=== PATIENT | female | born 1945 | race Caucasian/White ===

== ENCOUNTER → 2016-12-30 | Outpatient (CLI) | payer BC ==
--- NOTE | 2017-01-06 18:44 | PCVCIMAG ---
APPROVED REPORT Study performed: 12/30/2016 12:08:13 EXAM: Comprehensive 2D, Doppler, and color-flow Echocardiogram Patient Location: Echo lab Status: routine Indications Abnormal ECG Dyspnea Fatigue 2D Dimensions IVSd: 8.66 (7-11mm)LVOT Diam: 18.05 (18-24mm) LVDd: 49.78 mm PWd: 9.08 (7-11mm)Ascending Ao: 37.28 (22-36mm) LVDs: 37.39 (25-40mm) Left Atrium: 32.66 (27-40mm) Aortic Root: 25.12 mm LV Single Plane 4CH: 56.47 % LV Single Plane 2CH: 37.59 %Padilla's LVEF: 47.03 % Volumes Left Atrial Volume (Systole) Single Plane 4CH: 33.16 mLSingle Plane 2CH: 17.63 mL LA ESV Index: 13.00 mL/m2 Aortic Valve AoV Peak Trae.: 1.15 m/s AO Peak Gr.: 5.25 mmHgLVOT Max P.73 mmHg LVOT Max V: 0.83 m/s KASHMIR Vmax: 1.84 cm2 AI Vmax: 3.38 m/s AI [place]: 1.20 m/s2 AI PHT: 814.42 ms Mitral Valve E/A Ratio: 0.7 MV Decel. Time: 174.90 ms MV E Max Trea.: 0.39 m/s MV A Trae.: 0.58 m/s IVRT: 134.95 ms TDI E/Lateral E': 6.50E/Medial E': 6.50 Medial E' Trae.: 0.06 m/s Lateral E' Trae.: 0.06 m/s Pulmonary Valve PV Peak Trae.: 0.93 m/sPV Peak Gr.: 3.46 mmHg Pulmonary Vein P Vein S: 0.57 m/sP Vein A: 0.35 m/s P Vein D: 0.42 m/sP Vein A Dur.: 72.7 msec P Vein S/D Ratio: 1.36 Tricuspid Valve TR Peak Trae.: 1.74 m/s TR Peak Gr.: 12.13 mmHg TV Vmax: 0.40 m/sPA Pressure: 19.00 mmHg Left Ventricle The left ventricle is normal size. There is normal LV segmental wall motion. There is normal left ventricular wall thickness. Left ventricular systolic function is normal. The left ventricular ejection fraction is within the normal range. LVEF is 55-60%. Grade I - abnormal relaxation pattern. Right Ventricle The right ventricle is normal size. The right ventricular systolic function is normal. Atria The left atrium size is normal. The right atrium size is normal. Aortic Valve Aortic valve is trileaflet. Aortic valve leaflets are mildly sclerotic but open well. Trace to mild aortic regurgitation. There is no aortic valvular stenosis. Mitral Valve The mitral valve is normal in structure. There is no mitral valve regurgitation noted. No evidence of mitral valve stenosis. Tricuspid Valve The tricuspid valve is normal in structure. Trace tricuspid regurgitation with a PA pressure of 19mmHg. Pulmonic Valve The pulmonary valve is normal in structure. There is no pulmonic valvular regurgitation. Great Vessels The aortic root is normal in size. The ascending aorta is normal in size. IVC is normal in size and collapses with >50% inspiration The pulmonary artery is normal. Pericardium There is no pericardial effusion. There is no pleural effusion. <Conclusion> The left ventricle is normal size. There is normal left ventricular wall thickness. Left ventricular systolic function is normal. The left ventricular ejection fraction is within the normal range. LVEF is 55-60%. Grade I - abnormal relaxation pattern. The right ventricle is normal size. The right ventricular systolic function is normal. The left atrium size is normal. Aortic valve is trileaflet. Aortic valve leaflets are mildly sclerotic but open well. Trace to mild aortic regurgitation. There is no aortic valvular stenosis. There is no mitral valve regurgitation noted. There is no pericardial effusion.
== END | disposition home or self-care (01) ==
LOC: PCVCIMAG 11:14
PROVIDERS: ATTEND Internal Medicine Cardiovascular Disease
DX: I35.1 Nonrheumatic aortic (valve) insufficiency (principal); I07.1 Rheumatic tricuspid insufficiency; R94.31 Abnormal electrocardiogram [ECG] [EKG]; E78.5 Hyperlipidemia, unspecified; E03.9 Hypothyroidism, unspecified; Z90.721 Acquired absence of ovaries, unilateral; Z90.49 Acquired absence of other specified parts of digestive tract
CPT/HCPCS: 93017; 93306